=== PATIENT | female | born 1955 | race Caucasian/White ===

== ENCOUNTER → 2020-10-02 13:36 | Outpatient (BNVA) | payer MEDICARE, OTHER, SELFPAY | PROVIDERS: PCP Hospitalist; Visit Provider Anesthesiology | DX: G89.4 Chronic pain syndrome (principal); C50.919 Malignant neoplasm of unspecified site of unspecified female breast; Z97.8 Presence of other specified devices | CPT/HCPCS: 99202 ==

== ENCOUNTER → 2020-10-23 08:45 | Outpatient (BNVA) | payer MEDICARE, SELFPAY | PROVIDERS: PCP Hospitalist; Visit Provider Anesthesiology | DX: C50.919 Malignant neoplasm of unspecified site of unspecified female breast (principal); G89.4 Chronic pain syndrome; Z97.8 Presence of other specified devices | CPT/HCPCS: 99212 ==

== ENCOUNTER → 2020-11-08 08:59 | Outpatient (BNVA) | payer MEDICARE, SELFPAY | PROVIDERS: PCP Hospitalist; Visit Provider Anesthesiology | DX: C50.919 Malignant neoplasm of unspecified site of unspecified female breast (principal); G89.4 Chronic pain syndrome; Z97.8 Presence of other specified devices | CPT/HCPCS: 99212 ==

== ENCOUNTER → 2020-12-04 08:32 | Outpatient (BNVA) | payer MEDICARE, OTHER, SELFPAY | PROVIDERS: PCP Hospitalist; Visit Provider Anesthesiology | DX: C50.919 Malignant neoplasm of unspecified site of unspecified female breast (principal); G89.4 Chronic pain syndrome; Z97.8 Presence of other specified devices; Z79.899 Other long term (current) drug therapy | CPT/HCPCS: 99212 ==